=== PATIENT | male | born 1960 | race Caucasian/White ===

== ENCOUNTER → 2018-09-13 | Outpatient (CLI) | payer OTHER ==
[~2018-09-13] MED LIST: HYDR-3583 PO
--- NOTE | 2018-09-13 17:51 | Diagnostic Imaging Report ---
INDICATION: Neck mass. TECHNIQUE: Multiple real-time grayscale images were obtained over the thyroid and neck in various projections. FINDINGS: Right lobe of thyroid measures 4.5 x 1.6 x 1.3 cm. Left lobe measures 3.8 x 1.4 x 1.1 cm. Isthmus measures 2.6 mm. Both lobes of the thyroid demonstrate homogeneous echogenicity. There are no discrete solid or cystic masses. In the area of interest of the palpable abnormality, there appears to be a discrete muscle accounting for this. No pathologically enlarged adenopathy, mass, or fluid collection is appreciated. IMPRESSION: 1. Unremarkable appearance of the thyroid. 2. The palpable area in the neck appears to correspond to a muscle. Dictated by: Dictated on workstation # [id number]
== END ==
LOC: RAD 09:20
PROVIDERS: ATTEND Family Medicine
DX: R22.1 Localized swelling, mass and lump, neck (principal)
CPT/HCPCS: 76536

== ENCOUNTER → 2020-01-05 | Outpatient (CLI) | payer OTHER ==
--- NOTE | 2020-01-05 15:08 | Diagnostic Imaging Report ---
PROCEDURE: MRI left joint lower extremity without contrast. TECHNIQUE: Multiplanar, multisequence non contrast-enhanced MRI of the left lower extremity was accomplished. INDICATION: Left knee pain. COMPARISON: None available. FINDINGS: Medial compartment: Meniscus is intact. Articular cartilage is well preserved. Lateral compartment: Truncation at the free edge of the body of the lateral meniscus could represent some degenerative tearing. Lateral compartment articular cartilage is well preserved. Patellofemoral compartment: There is site of full-thickness chondral fissuring with underlying subchondral bone marrow edema in the lateral patellar facet. Remainder of the articular cartilage throughout the patellofemoral compartment is well-preserved. Bones: There is a moderate amount of subcortical intramedullary bone marrow edema throughout the medial femoral condyle. There is a potential site of subchondral insufficiency fracture in the posterior nonweightbearing aspect of the medial femoral condyle on image 22, series 5. There is no disruption of the subchondral bone plate. Tendons and ligaments: ACL and PCL are intact. The medial and lateral collateral ligamentous complexes are normal. Soft tissues: No knee joint effusion. No Cote's cyst. IMPRESSION: 1. Bone marrow edema in the medial femoral condyles likely due to a nondepressed subchondral insufficiency fracture in the posterior nonweightbearing surface. 2. Minimal degenerative free edge tearing in the body of the lateral meniscus. Medial meniscus is intact. 3. Focal full-thickness chondral fissuring in the lateral patellar facet. Remainder of the articular cartilage throughout the knee is well-preserved. Dictated by: Dictated on workstation # [id number]
== END ==
LOC: RAD 13:15
PROVIDERS: ATTEND Nurse Practitioner
DX: M23.232 Derangement of other medial meniscus due to old tear or injury, left knee (principal); M22.42 Chondromalacia patellae, left knee
CPT/HCPCS: 73721